=== PATIENT | female | born 1950 ===

== ENCOUNTER 2020-04-07 07:32 | Outpatient (CLI) | payer OTHER | END 2020-04-07 07:35 | disposition home or self-care (01) | LOC: SONOGRAMA 07:32 | DX: E04.1 Nontoxic single thyroid nodule (principal) ==

== ENCOUNTER 2025-01-14 08:58 | Outpatient (CLI) | payer OTHER | END 2025-01-14 09:00 | disposition home or self-care (01) | LOC: RAD 08:58 | PROVIDERS: ATTEND Specialist | DX: M75.51 Bursitis of right shoulder (principal); M77.12 Lateral epicondylitis, left elbow ==

== ENCOUNTER 2025-07-16 05:11 | Day surgery (SDC) | payer OTHER ==
[2025-07-11 12:54] VITALS: BP 170/74
[~2025-07-16] VITALS: Ht 157.5 cm; Wt 59.9 kg
[~2025-07-16 05:11] MED LIST: ATACAND16 MG; DORZOLAMIDE-TIM10 ML; EMGALITY; LASIX20 MG; LIPITOR20 MG; LUMIGAN2.5 M1; MONTELUKAST 10MG
[2025-07-16] MEDS ORDERED: BUPIVACAINE HCL/PF 0.25% 30ML VIAL InF ONE (08:15)
[2025-07-16] MEDS ORDERED: ISOPROPYL ALCOHOL 30 ML OUNCE TOP ONE (08:15)
[2025-07-16] MEDS ORDERED: CLINDAMYCIN PHOSPHATE 150 MG/ML (900mg) IV ONE (08:15)
[2025-07-16] MEDS ORDERED: ENALAPRILAT DIHYDRATE 1.25 MG/ML VIAL IV ONE (09:30)
== END 2025-07-16 11:15 | disposition home or self-care (01) ==
LOC: CIR.AMB 05:11
PROVIDERS: ATTEND Orthopaedic Surgery Hand Surgery
DX: D17.22 Benign lipomatous neoplasm of skin and subcutaneous tissue of left arm (principal); R22.32 Localized swelling, mass and lump, left upper limb